=== PATIENT | female | born 1945 | race Caucasian/White ===

== ENCOUNTER 2019-08-10 21:20 | Inpatient (IN) ==
[2019-08-10] MEDS ORDERED: VERSED IV ONE ×2 (22:22→23:52)
[2019-08-10] MEDS ORDERED: GLUCAGON IV ONE ×2 (22:22→23:52)
[2019-08-10] MEDS ORDERED: NS 500 ML IV ONE (22:28)
[2019-08-10 22:52] LABS: BASO# 0.06 X1000 (0.0-0.2); BASO% 0.5 % (0.0-0.8); EOS# 0.13 X1000 (0.0-0.7); EOS% 1.1 % (0.0-10.0); HEMATOCRIT 41.8 % (37.0-47.0); HEMOGLOBIN 14.2 g/dL (12.0-16.0); IMM GRAN# 0.07 X1000 (0.0-0.04); IMM GRAN% 0.6 % (0.0-0.5); LYMPH# 2.01 X1000 (1.2-3.4); LYMPH% 17.1 % (20.5-51.1); MCH 29.1 PG (27-31); MCV 85.7 FL (81-99); MONO# 1.01 X1000 (0.11-0.59); MONO% 8.6 % (1.7-9.3); NEUT% 72.1 % (42.2-75.2); PLT 344 X1000 (130-400); RBC 4.88 XMIL (4.2-5.4); RDW 13.3 % (11.5-14.5); WBC 11.78 X1000 (4.8-10.8)
[2019-08-10] MEDS ORDERED: VERSED ONE (22:57)
[2019-08-10 23:28] LABS: CALCIUM 8.9 mg/dL (8.8-10.2); CREATININE 1.1 mg/dL (0.5-0.9); POTASSIUM 4.2 mmol/L (3.5-5.1)
[2019-08-11] MEDS ORDERED: VERSED IV ONE (00:15)
[2019-08-11] MEDS ORDERED: NITROGLYCERIN SL ONE (02:31)
[2019-08-11] MEDS ORDERED: PROTONIX IV ONE (02:31)
[2019-08-11] MEDS ORDERED: SODIUM CHLORIDE 0.9% INJ ONE (02:32)
[2019-08-11] MEDS ORDERED: DEMEROL IV ONE (02:32)
[2019-08-11] MEDS ORDERED: NS 1,000 ML IV ONE (02:32)
[2019-08-11] MEDS ORDERED: MORPHINE IV PRN (02:50)
[2019-08-11] MEDS ORDERED: APRESOLINE IV PRN (02:50)
--- NOTE | 2019-08-11 03:00 | PROVIDER DOCUMENTATION ---
This chart was entered by Mckayla Walton Scribe, acting as scribe for Sara Acosta MD. HPI-EENT General - General Chief Complaint: Foreign Body/Throat Stated Complaint: HARD TO BREATHE, "CHOKED" Time Seen by Provider: 08/10/19 22:20 Source: patient Allergies/Adverse Reactions: Patient Allergies Allergy/AdvReac Type Severity Reaction Status Date / Time Sulfa (Sulfonamide AdvReac NAUSEA Verified 08/10/19 22:47 Antibiotics) Home Medications: Home Medication List Medication Instructions Recorded Confirmed Last Taken Type Amlodipine [Norvasc] 1 tab PO DAILY 08/11/19 08/11/19 08/10/19 History Clopidogrel Bisulfate [Clopidogrel] 1 tab PO DAILY 08/11/19 08/11/19 08/10/19 History Insulin Detemir [Levemir Flextouch] 60 units SQ HS 08/11/19 08/11/19 08/10/19 History Oxybutynin [Ditropan] 1 tab PO DAILY 08/11/19 08/11/19 08/10/19 History Pravastatin Sodium 1 tab PO DAILY 08/11/19 08/11/19 08/10/19 History - History of Present Illness-EENT General Nature of Presenting Problem: pt is a 73 yr old female presenting with complaint of choking/foreign body sensation. pt reports tonight while eating roast beef she felt a piece of meat get stuck in her throat and has been unable to get it to come up or go down. pt reports meat feels stuck in her throat and she is having a difficult time with swallowing, unable to tolerate even salvia. pt reports hx of same x 7 yrs (has never reported to her doctor), becoming more frequent. pt reports 2-3x weekly now but always able to clear it within 30min of onset. pt reports tonight even with vomiting she cannot get it to pass. EENT Location: reports: throat Quality of Pain: reports: other (foreign body) Onset/Duration: reports: 1-3 hours ago Timing: reports: still present Prearrival Treatment: Initiated other (vomiting-no improvement) Associated Symptoms: reports: drooling, other (unable to swallow, nausea/vomiting) Locality of Occurance: Home Similar Symptoms Previously?: Yes Recently seen or treated by another doctor?: No - Throat/Dental Throat/Dental Problem Symptoms: reports: unable to swallow Throat/Dental Problem Context: reports: foreign body Review of Systems - Adult - REVIEW OF SYSTEMS - ADULT Constitutional: reports: no symptoms reported Eyes: reports: no symptoms reported Ears, Nose, Mouth & Throat: reports: other (unable to swallow) Cardiovascular: reports: no symptoms reported Respiratory: reports: no symptoms reported Gastrointestinal: reports: difficulty swallowing, nausea, vomiting Genitourinary: reports: no symptoms reported Musculoskeletal: reports: no symptoms reported Integumentary: reports: no symptoms reported Neurological: reports: no symptoms reported Psychiatric: reports: no symptoms reported Endocrine: reports: no symptoms reported Hematologic/Lymphatic: reports: no symptoms reported Allergic/Immunologic: reports: no symptoms reported All Other Systems: Reviewed and Negative Past History - Adult - PAST MEDICAL HISTORY-ADULT Review of Records: reports: Old Records Reviewed, Nursing Assessment Review, Medications Reviewed, Social history reviewed & non-contributory. Major Childhood Illnesses: reports: denies history Cardiovascular: reports: denies history Respiratory: reports: denies history Gastrointestinal: reports: denies history Obstetrical/Gynecological: reports: denies history Genitourinary: reports: denies history Musculoskeletal: reports: denies history Neurological: reports: denies history Endocrine/Immune: reports: denies history Other Conditions: reports: denies history - IMMUNIZATION STATUS Childhood Immunizations: See Nurse Assessment Flu Vaccine: See Nurse Assessment - FAMILY HISTORY Family History: reviewed, not pertinent - SOCIAL HISTORY Living Situation: family Physical Exam- EENT - Physical Exam EENT Initial Vital Signs Reviewed: Yes General Appearance: appears well, alert, no apparent distress Eye Exam: bilateral eye: normal inspection, PERRL Nasal Exam: normal inspection Throat Exam: normal mouth inspection, pharynx normal Neck: non-tender, full range of motion, supple, normal inspection Respiratory: chest non-tender, lungs clear, normal breath sounds, no respiratory distress, no accessory muscle use Cardiovascular: normal peripheral pulses, regular rate, rhythm, no edema Abdominal Exam: normal bowel sounds, non tender, soft Lymphatic: no adenopathy Back Exam: normal inspection, no CVA tenderness, no vertebral tenderness Extremity: normal range of motion, non-tender, normal gait, normal inspection Integumentary: normal color, normal turgor, warm/dry Neurologic: grossly normal, no motor/sensory deficits Psych/Mental Status: normal mood/affect, normal thought content, normal thought process, oriented x 3 Progress - PLAN OF CARE/RESULTS Progress/Plan/Lab Results: Vital Signs - 8 hr 08/10/19 21:24 08/10/19 22:37 08/10/19 23:00 Temperature 98.3 F Pulse Rate 63 Respiratory Rate 20 Blood Pressure 208/66 O2 Sat by Pulse Oximetry 100 99 100 08/10/19 23:02 08/10/19 23:30 08/10/19 23:32 Temperature Pulse Rate Respiratory Rate Blood Pressure 190/105 204/149 O2 Sat by Pulse Oximetry 100 100 100 08/11/19 00:00 08/11/19 00:01 08/11/19 00:30 Temperature Pulse Rate Respiratory Rate Blood Pressure 212/122 O2 Sat by Pulse Oximetry 99 100 99 08/11/19 00:31 08/11/19 01:12 08/11/19 01:30 Temperature Pulse Rate Respiratory Rate Blood Pressure 187/117 O2 Sat by Pulse Oximetry 98 97 98 08/11/19 01:31 08/11/19 02:00 08/11/19 02:01 Temperature Pulse Rate Respiratory Rate Blood Pressure 203/83 226/90 O2 Sat by Pulse Oximetry 98 99 97 Laboratory Results - last 24 hr 08/10/19 08/10/19 22:45 22:45 WBC 11.78 H RBC 4.88 Hgb 14.2 Hct 41.8 MCV 85.7 MCH 29.1 MCHC 34.0 RDW Std Deviation 13.3 Plt Count 344 MPV 11.0 H Immature Gran % (Auto) 0.6 H Neut % (Auto) 72.1 Lymph % (Auto) 17.1 L [place] % (Auto) 8.6 Eos % (Auto) 1.1 Baso % (Auto) 0.5 Immature Gran # (Auto) 0.07 H Neut # (Auto) 8.50 H Lymph # (Auto) 2.01 [place] # (Auto) 1.01 H Eos # (Auto) 0.13 Baso # (Auto) 0.06 Sodium 138 Potassium 4.2 Chloride 98 Carbon Dioxide 19 L Anion Gap 21 BUN 16 Creatinine 1.1 H Estimated GFR/1.73 m2 48 BUN/Creatinine Ratio 15 Glucose 205 H Calculated Osmolality 283 Calcium 8.9 Orders Category Date Time Status IV Insertion ORDERED Care 08/10/19 22:22 Completed Misc. NRSG Communication Order DIRECTED Care 08/11/19 02:49 Active Nursing- MD Consult Request ROUTINE Care 08/11/19 02:49 Active Update & Confirm Home Medicati ROUTINE Care 08/11/19 02:48 Active Physician/Provider Consults Routine Cons 08/11/19 02:49 Ordered NPO Diet 08/11/19 02:[address] NECK W/CONTRAST [CT] Stat Exams 08/10/19 23:52 Taken BASIC METABOLIC PANEL [CHEM] Stat Lab 08/10/19 22:45 Completed CBC WITH DIFF [HEME] Stat Lab 08/10/19 22:45 Completed 0.9% Sodium Chloride Inj [Ns] 1,000 ml Med 08/11/19 02:32 Active IV 999 mls/hr 0.9% Sodium Chloride Inj [Ns] 500 ml Med 08/10/19 22:28 Discontinued IV 999 mls/hr Glucagon Med 08/10/19 22:22 Discontinued 1 mg IV NOW ONE Glucagon Med 08/10/19 23:52 Discontinued 1 mg IV NOW ONE Hydralazine [Apresoline] Med 08/11/19 02:50 Ordered 10 mg IV Q6H PRN PRN Meperidine [Demerol] Med 08/11/19 02:32 Discontinued 25 mg IV NOW ONE Midazolam [Versed] Med 08/10/19 22:22 Discontinued 1 mg IV NOW ONE Midazolam [Versed] Med 08/11/19 00:15 Discontinued 1 mg IV NOW ONE Midazolam [Versed] Med 08/10/19 22:57 Discontinued 5 mg .ROUTE .STK-MED ONE Morphine Med 08/11/19 02:50 Ordered 2 mg IV Q3H PRN PRN Nitroglycerin Sl [Nitroglycerin] Med 08/11/19 02:31 Discontinued 0.4 mg SL NOW ONE Ondansetron [Zofran] Med 08/11/19 02:50 Ordered 4 mg IV Q4-6H PRN PRN Pantoprazole [Protonix] Med 08/11/19 02:31 Discontinued 40 mg IV NOW ONE Sodium Chloride 0.9% Med 08/11/19 02:32 Discontinued 10 ml INJ NOW ONE Transfer/Admit Order [TRANSFER] Routine Transfer 08/11/19 02:51 Ordered esophageal food impaction will treat with glucagon and versed to attempt to pass obstruction and as with history of progressively worsening symptoms will image with CT for any mass or mechanical cause of obstruction. Result Diagrams: 08/10/19 22:45 08/10/19 22:45 - REASSESSMENT Reassessment #1 Status: unchanged (continued sensation of FB and unable to swallow her saliva despite medications in the ED. Will likely need EGD. Discussed case with Dr. Cassius levine, GI phyician director information security, who recommends NTG SL and demerol and plans EDG in the AM. Asks that pt be admitted to the hospistalist for management in the meantime. Discussed case with Dr. Vernon, hospitalist, who will see and admit pt.) - CT/MRI 1 CT Study: Neck, other (chest) Impression: Abnormal (1. dilated esophagus with air fluid level extending inferiorly beyond the field of view. consideration would include obstruction. differential diagnosis would include mass lesion, benign stricture or foreign body. other considerations include achalasia. recommend CT chest and abdomen for further evaluation) Comparison with other Films: no prior study Departure - Departure Date of Disposition Decision: 08/11/19 Time of Disposition Decision: 02:59 DIAGNOSIS: Esophageal obstruction due to food impaction Disposition: ADMITTED INPATIENT 09 Certified Medical Emergency: Emergent Condition: Fair - Critical Care Note This patient required my direct & personal management of CC.: No Attestation - Physician/ ANJU Attestation Patient care was provided by Advanced Practice Provider:: No The physician spent face to face time with patient:: Yes Advanced Practice Provider documentation review:: Supervising physician onsite and consulted in the evaluation and care of this patient. The physician did have a face to face encounter with the patient. This chart was documented by the indicated scribe, (Mckayla Walton Scribe) and accurately reflects the services I performed and decisions made by me, Sara Acosta MD, as attested by the provider's signature.
[2019-08-11] MEDS ORDERED: NS 1,000 ML IV SCH (04:32)
[2019-08-11] MEDS ORDERED: PROTONIX IV SCH (04:32)
[2019-08-11] MEDS: ZOFRAN IV PRN ×2 (04:44→09:45)
[2019-08-11 06:30] LABS: HEMOGLOBIN A1C 8.5 % (4.8-6.0)
--- NOTE | 2019-08-11 07:18 | HISTORY AND PHYSICAL ---
ADDENDUM: Patient was seen and examined by myself. Full note dictated and discussed with nurse practitioner. Patient presented to the hospital with difficulty swallowing. Notes she has been having issues for the last few years. She just thought it was a hiatal hernia. She has been diagnosed with a hiatal hernia. This time, she states that she started eating and felt as though her food got stuck. She has been vomiting since. We are going to admit her to the hospital, consult GI. Currently, she is in no respiratory distress. Her nausea has improved with medications. We will continue to follow. Please see full note. cc: Anshul Vernon MD
--- NOTE | 2019-08-11 07:48 | Diag Imaging Result Doc PS360 ---
EXAM: CT NECK W/CONTRAST 08/10/2019 HISTORY: esophageal obstruction TECHNIQUE: This exam was performed using automated exposure control, adjustment of mA or kV according to patient size, and/or use of iterative reconstruction technique. COMMENT: There is fluid in the visualized portion of the thoracic esophagus with an air-fluid level seen at the level of the aortic arch. This was not present at the time of the previous CT coronary calcification study of 07/27/2015. No significant mucosal changes are noted. The nasopharynx and pharynx are within normal limits. The salivary glands are symmetrical in appearance. There is no evidence of significant adenopathy. 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 There are some small nodules in the right thyroid lobe. IMPRESSION: The possibility of distal thoracic esophageal obstruction cannot be excluded. This portion of the esophagus is not included on this study. Electronically signed by Raji Celis 08/11/2019 7:45 AM
--- NOTE | 2019-08-11 08:02 | HISTORY AND PHYSICAL ---
CHIEF COMPLAINT: Choked on food. HISTORY OF PRESENT ILLNESS: Ms. Del Cid is a very pleasant 73-year-old female. Tonight she was eating roast beef and got a piece of meat stuck in her throat. Said she has had episodes like this in the past, usually it clears within 20 to 30 minutes from onset. Tonight even with vomiting she was not able to get the food to pass. She was also having trouble managing her own saliva. She came into the emergency room. A CT of her neck showed dilated esophagus with air fluid levels extending inferiorly beyond the field of view. Consideration of obstruction or foreign body. Laboratory data was all grossly normal. She will be admitted for further evaluation and treatment. PAST MEDICAL HISTORY: 1. Diabetes mellitus, type 2. 2. Hypertension. 3. Hyperlipidemia. PREVIOUS SURGICAL HISTORY: Right knee replacement with subsequent right knee surgery, hysterectomy, appendectomy, cholecystectomy. SOCIAL HISTORY: Lives with family. No tobacco, alcohol or illicit drugs. FAMILY HISTORY: Positive for diabetes mellitus in first-degree relatives. Mother had a myocardial infarction and hypertension. ALLERGIES: Sulfa antibiotics causing abdominal pain. HOME MEDICATIONS: Norvasc 5 mg p.o. daily, Plavix 75 mg p.o. daily, Levemir 60 units subcutaneous nightly, Ditropan 5 mg p.o. daily, pravastatin 20 mg p.o. daily. REVIEW OF SYSTEMS: Fourteen-point review of systems conducted with the patient. Pertinent positives listed above in the HPI. All other systems reviewed and found to be negative. PHYSICAL EXAMINATION: VITAL SIGNS: Temperature 98.3, pulse 63, respirations 20, blood pressure 190/87, oxygen saturation 100% on room air. GENERAL: Pleasant 73-year-old female lying in the ER stretcher. Alert and oriented x3. Answers all questions appropriately. In no acute distress. HEENT: Head is atraumatic, normocephalic. Pupils equal, round, reactive to light. Extraocular eye movement is intact. Sclerae are anicteric. Conjunctiva is pink. Oral mucosa is moist. NECK: Supple. No JVD. No thyromegaly. Trachea is midline. No cervical lymphadenopathy. CARDIAC: S1, S2 appreciated. No murmurs, gallops, rubs. LUNGS: Clear to auscultation bilaterally. No rhonchi, wheezes, rales. Symmetric rise and fall with respirations. ABDOMEN: Protuberant, soft, nondistended, nontender. Bowel sounds present in all 4 quadrants. Normoactive. No pulsatile mass. No organomegaly. EXTREMITIES: No clubbing, cyanosis or edema. Two-plus pedal pulses bilaterally. GENITOURINARY: No bladder distention. Patient voids. Otherwise deferred. NEUROLOGICAL: Alert and oriented x3. Cranial nerves II through XII grossly intact. DIAGNOSTIC DATA: CT of the neck shows a food impaction. LABORATORY DATA: WBC 11.78. BUN 16. Creatinine 1.1. Glucose 205. ASSESSMENT AND PLAN: 1. Food impaction. Consult GI. She was given Glucagon, Demerol and Versed in the emergency room. This did not help it to pass. Is having nausea and vomiting and pain. Will give morphine and Zofran. Keep patient NPO with normal saline. 2. Diabetes mellitus, type 2 with hyperglycemia. Check hemoglobin A1c, fingerstick blood sugars and sliding scale insulin. 3. Hyperlipidemia. Will continue pravastatin once the patient is taking p.o. 4. Hypertension. Place patient on hydralazine q.6 hours as needed. Will continue Norvasc once patient is taking p.o. Further recommendations per patient clinical course. Dictated by KIANA Hooker for Anshul Vernon MD cc: MD Anshul Mcmahon MD
[2019-08-11] MEDS ORDERED: PRAVACHOL PO SCH ×2 (09:00→21:00)
[2019-08-11] MEDS ORDERED: DIPRIVAN 1% ONE ×2 (09:32→11:16)
[2019-08-11] MEDS ORDERED: XYLOCAINE-MPF 2% ONE (09:32)
--- NOTE | 2019-08-11 11:14 | ENDOSCOPY OPERATIVE NOTE ---
[facility] ENDOSCOPY OPERATIVE NOTE , PATIENT: Fidelina Del Cid ADMISSION DATE: MR#: [id number] : 1945 EGD PROCEDURE REPORT PROCEDURE DATE: 08/11/2019 SURGEON: Wili Ramos MD STATUS: inpatient ENAMEL CRACKER: Tod Snow and Ani Alan PREOPERATIVE DIAGNOSIS: The patient is a 73 yr old female here for an EGD due to Food Impaction. PROCEDURE PERFORMED: EGD w/ fb removal MEDICATIONS: Per Anesthesia TOPICAL ANESTHETIC: none CONSENT: The patient understands the risks and benefits of the procedure and understands that these r isks include, but are not limited to: sedation, allergic reaction, infection, perforation and/or bleeding. Alternative means of evaluation and treatment include, among others: physical exam, x-rays, and/or surgical intervention. The patient elects to proceed with this endoscopic procedure. HISORY AND PHYSICAL: 08/11/2019 function. Hand hygiene and appropriate measures for infection prevention was taken. After the risks, benefits and alternatives of the procedure were thoroughly explained, Informed consent was verified, confirmed and timeout was successfully executed by the treatment team. The patient was anesthetized with topical anesthesia and the endoscope was introduced through the mouth and advanced to the second portion of the duodenum. Retroflexion wa s performed in the stomach and revealed no abnormalities. The gastroscope was then slowly withdrawn and removed. ESOPHAGUS: Food bolus noted at the distal and mid esopahgus; Removed with Tripod forceps and Patten Net partly and part of the food bolus was successfully pushed into the stomach. Esopahgitis Grade III noted at the distal e sophagus. Small Hiatal hernia noted. STOMACH: Gastritis in the body and antrum was noted. DUODENUM: Mild duodenal inflammation was found in the duodenal bulb. The duodenal mucosa showed no abnormalities in the 2nd part of the duodenum. SPECIMENS REMOVED: No ADVERSE EVENTS: There were no complications. POSTOPERATIVE DIAGNOSIS: 1. Food bolus noted at the distal and mid esopahgus; Removed with Tripo d forceps and Patten Net partly and part of the food bolus was successfully pushed into the stomach. Esopahgitis Grade II I noted at the distal esophagus. Small Hiatal hernia noted 2. Gastritis in the body and antrum was noted 3. Duodenal inflammation was found in the duodenal bulb 4. The duodenal mucosa showed no abnormalities in the 2nd part of the duodenum RECOMMENDATIONS: Liquid diet for 1-2 days and then advance to soft diet only. RTC in 1 week to s chedule for EGD with dilation once off Plavix for 1 week (H/o CAd with stents 2 years ago). Start Protonix 40 mg twi ce daily for 3 months. REPEAT EXAM: Wili Ramos MD eSigned: Wili Ramos MD 08/11/2019 12:14 PM cc: PATIENT NAME: Fidelina Del Cid MR#: [id number]
[2019-08-11] MEDS: HUMALOG SUBQ SCH ×4 (11:46→22:30)
[2019-08-11] MEDS: DITROPAN PO SCH (12:25)
[2019-08-11] MEDS: NORVASC PO SCH (12:25)
[2019-08-11] MEDS: SODIUM CHLORIDE 0.9% INJ SCH ×2 (12:26→20:29)
[2019-08-11] MEDS: PLAVIX PO SCH (16:08)
--- NOTE | 2019-08-11 17:43 | PROGRESS NOTE ---
DATE: 08/11/2019 SUBJECTIVE: This patient is resting comfortably in bed. She is tolerating liquid diet. She is not complaining of pain. Family members at the bedside. All their questions were answered. I had a conversation with Dr. Ramos who asked me to hold the Plavix today, we will restart the Plavix tomorrow and he will follow this patient as an outpatient in 1 week to schedule an esophageal dilation. OBJECTIVE: Vital Signs: Temperature 98 degrees, pulse 65, respiratory rate 16, blood pressure 128/52, oxygen saturation 98 on 2 L of nasal cannula. HEENT: Head normocephalic. No trauma. PERRLA. Neck: Supple. No JVD. No masses. Central trachea. Chest: Clear to auscultation. No wheezing. No rales. Abdomen: Soft, nontender, nondistended. No hepatosplenomegaly. Extremities: No edema, no clubbing, no cyanosis. Neurological: The patient is alert, she is oriented. She is following commands. LABORATORY: Glucose 248. ASSESSMENT AND PLAN: 1. Food impaction in the esophagus status post EGD, where they found a food bolus noted at the distal and midesophagus removed with tripod forceps and Patten Net partly and part of the bolus was successfully pushed into the stomach, she also has esophagitis grade 3 noted at the distal esophagus, small hiatal hernia noted, gastritis in the body and antrum was noted. Duodenal inflammation was found in the duodenal bulb. The duodenal mucosa showed no abnormalities in the 2nd part of the duodenum. They have recommended to continue with a liquid diet for 1 or 2 days and then advance to soft diet. They need to return to the office in 1 week to schedule for EGD with dilation once she is off Plavix for 1 week. She has a history of coronary artery disease with stents 2 years ago and they have recommended to start Protonix 40 mg twice a day for 3 months. 2. Type 2 diabetes. Continue with same management for now. 3. Hypertension, blood pressure better controlled, it was uncontrolled in the morning. 4. Hyperlipidemia, stable. Will monitor. 5. Obesity with a body mass index of 36.7 aware. Diet and exercise has been discussed. cc: Mat Dodson MD
[2019-08-11] MEDS: PROTONIX IV SCH (20:29)
[2019-08-12 04:29] VITALS: BP 159/58
[2019-08-12 06:29] LABS: AGAP 16; BUN 9 mg/dL (8-22); CALCIUM 7.6 mg/dL (8.8-10.2); CHLORIDE 104 mmol/L (98-107); COSMO 286; CREATININE 0.8 mg/dL (0.5-0.9); ESTIMATED GFR > 60; GLUCOSE 208 mg/dL (70-104); POTASSIUM 3.6 mmol/L (3.5-5.1); SODIUM 141 mmol/L (136-145); TCO2 21 mmol/L (25-35)
[2019-08-12] MEDS: HUMALOG SUBQ SCH ×2 (06:47→11:29)
[2019-08-12] MEDS: DITROPAN PO SCH (09:48)
[2019-08-12] MEDS: PLAVIX PO SCH (09:48)
[2019-08-12] MEDS: NORVASC PO SCH (09:49)
[2019-08-12] MEDS: PROTONIX IV SCH (09:49)
--- NOTE | 2019-08-12 12:24 | PROVIDER PROGRESS NOTE ---
Progress Note SUBJECTIVE: Ms. Del Cid was sitting in the bed and family was at the bedside, expressed her excitement to go home. OBJECTIVE: Vital Signs: Temperature 97.9 degrees, Pulse rate 68, Respiration 18, Blood pressure 159/58, O2 99% @ RA, body weight 206 pounts, BMI 36.7 kg per meter square. General appearance: Patient is obese,sitting in bed, no acute distress. HEENT: Pale conjunctivae, no icterus, PERRLA. Neck: supple Abdomen: No tenderness or discomfort noted. Extremities: No cynosis, clubbing or edema noted Neuro: AO x 3 Labs: Hemaglobin 14.2 and hematocrit 41.8 , White blood count 11.78 , Platelet count [id number], sodium 141, potassium 3.6, bicar 21. anion gap 16, BUN 9, Creatinine 0.8,glucose 208. IMPRESSION AND PLAN: 1. Food impaction - EGD done yesterday and was the food particles were removed, patient is on protonix BID. 2. Type 2 diabetes managed by PCP 3. Hypertension managed by PCP 4. Hyperlipidemia managed by PCP 5. Obesity - educated on diet and exerxise. PLAN: Patient can be discharged from GI stand point. Continue protonix twice a day, Follow up with the Dr. Ramos in a week and plans to have repeat EGD in 4-6 weeks. This plan of care has been discussed with Dr. Cedeno and the patient. Please call us for any further questions or concens. (Gail Waddell) I seen and examined the patient. I have reviewed the labs, imaging, and other documentation. I discussed the case with Gail Waddell CREW CALLER and agree with the findings and plan as documented. (Darrell Cedeno Jr)
--- NOTE | 2019-08-12 13:02 | DISCHARGE SUMMARY ---
ADMISSION DATE: 08/11/2019 DISCHARGE DATE: 08/12/2019 DISCHARGE DIAGNOSES: 1. Food impaction in the esophagus, status post esophagogastroduodenoscopy. 2. Type 2 diabetes. 3. Hypertension. 4. Hyperlipidemia. 5. Coronary artery disease. PROCEDURES PERFORMED: 1. Neck CT scan dated 08/10/2019 impression: The possibility of distal thoracic esophageal obstruction cannot be excluded. This portion of the esophagus is not included on this study. 2. Upper endoscopy dated 08/11/2019 impression: Food bolus noted at the distal and mid esophagus, removed. Esophagitis grade 3 at the distal esophagus. A small hiatal hernia noted. Gastritis in the body and antrum were noted. Duodenitis at the duodenal bulb. HOSPITAL COURSE: A 73-year-old female with past medical history of diabetes, hypertension, coronary artery disease, hyperlipidemia, states that she was eating roast beef and got a piece of meat stuck in her throat. She said that she had episodes like these in the past and usually clears within 20 to 30 minutes from onset, but the day of admission on 08/11/2019 she was not able to get the food to pass. She was also having trouble managing her own saliva. CT of the neck showed dilated esophagus with air-fluid level extending inferiorly beyond the field. Consideration of obstruction or foreign body has been made. Laboratory was grossly normal. She was admitted and she had an EGD done on 08/11/[address] Ramos, who found a food bolus at the distal and mid esophagus. That was removed with tripod forceps and Patten net partly, and part of the bolus was successfully pushed into the stomach. Also they found esophagitis grade 3 at the distal esophagus, small hiatal hernia, gastritis in the body and antrum was noted as well, and duodenitis in the duodenal bulb. The patient after the procedure felt much better. It has been recommended to continue with liquid diet and advanced to a soft pureed diet afterwards. She will be re-evaluated by Dr. Ramos again at the office on 08/19/2019 at 2:30 p.m. If she is completely fine, we will put her back on her home medications and we will add Protonix twice a day for 3 months. They will need to schedule for EGD with esophageal dilation once this patient is off Plavix, but this will be managed by the Gastroenterology doctor. PHYSICAL EXAMINATION: Vital Signs: Temperature 98.1 degrees, pulse 66, respiratory rate 22, blood pressure 159/58, oxygen saturation 93 on room air. HEENT: Head normocephalic, no trauma. PERRLA. Neck: Neck is supple. No JVD. No masses. Central trachea. Chest: Clear to auscultation. No wheezing. No rales. Abdomen: Soft, protuberant, nontender, nondistended. No hepatosplenomegaly. Extremities: No edema, no clubbing, no cyanosis. Neurological examination: The patient is alert and oriented x3. No focal deficits. LABORATORY: Sodium 141, potassium 3.6, chloride 101, bicarbonate 21. BUN 9, creatinine 0.8, glucose 208, calcium 7.6. DISCHARGE MEDICATIONS: Amlodipine 5 mg p.o. daily, Plavix 75 mg p.o. daily, insulin detemir 60 units subcutaneous at bedtime, oxybutynin 5 mg p.o. daily, pantoprazole 40 mg p.o. b.i.d., and pravastatin 20 mg p.o. daily. TIME DISCHARGING THIS PATIENT: 25 minutes. cc: Mat Dodson MD
== END 2019-08-12 12:05 | disposition home or self-care (01) | DRG 206 ==
LOC: ED 21:20 → 2N 08-11 04:17 → SUATTDRO 08-11 04:17 → EDIPHOLD 08-11 04:40 → 2N 08-11 06:05
PROVIDERS: ATTEND Internal Medicine